=== PATIENT | female | born 1960 | race Caucasian/White ===

== ENCOUNTER 2019-03-28 11:17 | Outpatient (CLI) | payer OTHER, SELFPAY ==
--- NOTE | 2019-03-28 | US_ITS ---
WS: [id number] ULTRASOUND SOFT TISSUES RIGHT lower extremity HISTORY: SUBCUTANEOUS NODULE COMPARISON: None available. TECHNIQUE: 2-D and color Doppler imaging is submitted. Images submitted are labeled RIGHT lower leg. The exact location cannot be determined from the imagin g submitted. There is a vague area of increased echogenicity in the palpable site measuring 1.6 x 1.5 cm. Poorly defined with infiltrating margins. US/US soft tissue/extremity [id number] IMPRESSION: Palpable area corresponds to a vague hyperechoic poorly defined mass. May be a benign lipoma or healing soft tissue injury. No increased vascularity.
== END 2019-03-28 11:18 | disposition home or self-care (01) ==
LOC: RADOUTREAD 15:40
PROVIDERS: Family Provider Family Medicine; PCP Physician Assistant; Visit Provider Physician Assistant
DX: R22.9 Localized swelling, mass and lump, unspecified (principal)

== ENCOUNTER 2019-11-20 09:00 | Outpatient (CLI) | payer OTHER, SELFPAY ==
--- NOTE | 2019-11-20 09:07 | MM_ITS ---
WS: [id number] BILATERAL DIGITAL SCREENING MAMMOGRAPHY WITH CAD CLINICAL INFORMATION: SCREENING HISTORY: Screening mammogram. No current complaints. COMPARISON: None. TECHNIQUE: Bilateral CC and MLO views. FINDINGS: Scattered fibroglandular densities bilaterally. No suspicious focal mass, asymmetry, calcifications, or architectural distortion. No evidence of malignancy. MM/[place] [id number] IMPRESSION: BI-RADS: 1-Negative FOLLOW UP: 1 Year Follow-up Recommend return to annual screening mammography.
== END 2019-11-20 09:01 | disposition home or self-care (01) ==
LOC: RADSHAW 09:05
PROVIDERS: PCP Physician Assistant; Visit Provider Physician Assistant
DX: Z12.31 Encounter for screening mammogram for malignant neoplasm of breast (principal)
CPT/HCPCS: 77067

== ENCOUNTER 2020-05-25 12:54 | Emergency (ER) | payer OTHER, SELFPAY ==
[2020-05-25 13:02] VITALS: BP 166/94; PULSE 62; RESP 14; TEMP 37.1; O2SAT 98; BMI 45.9
--- NOTE | 2020-05-25 13:47 | W.ED.ABDPA2 ---
HPI - Abdominal Pain General: Chief Complaint: Abdominal Pain Stated Complaint: abd. pain left side, headaches Time Seen by Provider: 05/25/20 13:29 History of Present Illness: HPI narrative: Patient is a 59-year-old female comes to the ED with back pain and headache. Headache is described as a mild to moderate headache that starts at her neck and radiates up the back of her head. Back pain has been going on for over 3 months now. It is located on the left thoracic back region just below the scapula. Denies any pain with inspiration. Describes pain as achy and says that has episodes where the pain gets worse. Certain movements cause worsen the back pain. Denies any injury or accident to cause back pain. She says pain started back in January when she was diagnosed with COVID-19. Denies any chest pain, shortness of breath, dysuria, hematuria, abdominal pain, bowel symptoms. Associated Symptoms: Denies chills, constipation, diarrhea, dysuria, fever(s), hematochezia, hematuria, nausea and vomiting Review of Systems Const: Denies: fever(s), chills or fatigue Eyes: Denies: change in vision or eye discomfort ENMT: Denies: throat pain, odynophagia, nasal discharge or nasal congestion Card: Denies: chest pain, palpitations, edema, swelling of feet/ankles, dyspnea on exertion or orthopnea Resp: Denies: dyspnea, productive cough or non-productive cough GI: Denies: abdominal pain, nausea, vomiting, diarrhea, constipation or hematochezia : Denies: flank pain, dysuria or hematuria Musc: Reports: back pain; Denies: neck pain or extremity swelling Skin/Breast: Denies: rash or new lesions Neuro: Reports: headache(s); Denies: numbness in extremities or weakness in extremities Physical Exam Const: COMMON NORMALS: no acute distress, patient oriented x3 and alert GENERAL APPEARANCE: cooperative and comfortable HENMT: COMMON NORMALS: normocephalic HEAD & SCALP: normocephalic MOUTH: Normal oral and palatal mucosa present THROAT: posterior oropharynx normal and uvula midline Neck/C-Spine: COMMON NORMALS: supple GENERAL: Yes normal visual inspection Resp: COMMON NORMALS: normal respiratory effort, No retractions, No use of accessory muscles and clear to auscultation bilaterally AUSCULTATION: clear to auscultation bilaterally Cardio: COMMON NORMALS: regular rate, regular rhythm, S1 normal heart sound present, S2 normal heart sound present, No gallops present (Cardio), No clicks present (Cardio), No murmurs present (Cardio) and Peripheral pulses 2+ throughout RATE: regular rate RHYTHM: regular rhythm HEART SOUNDS: S1 normal heart sound present and S2 normal heart sound present PERIPHERAL PULSES: Peripheral pulses 2+ throughout GI: COMMON NORMALS: Normal to inspection, nondistended, normoactive bowel sounds present, Soft to palpation, non-tender and no masses PALPATION: Yes Soft to palpation : COMMON NORMALS: Yes no CVA tenderness BLADDER/KIDNEY EXAM: Yes no CVA tenderness Back/Pelvis: COMMON NORMALS: no CVA tenderness THORACIC SPINE/UPPER BACK: Yes pain with ROM (She has some back pain on the left side with movement.) and Yes other soft tissue findings Other thoracic soft tissue findings laterality: left Left other thoracic soft tissue findings details: tenderness (Soft tissue tenderness left thoracic back region just below the scapula.) Extremity: COMMON NORMALS: normal to inspection Neuro: COMMON NORMALS: patient oriented x3 SENSORIUM/ORIENTATION: Yes alert GAIT: Yes Normal gait present Skin: GENERAL SKIN EXAM: dry skin Course Vital Signs: Vital signs: Vital Signs Temperature 98.8 F 05/25/20 13:02 Pulse Rate 55 L 05/25/20 14:10 Respiratory Rate 14 05/25/20 14:10 Blood Pressure 194/94 05/25/20 14:10 Pulse Oximetry 97 05/25/20 14:10 MDM - Abdominal Pain MDM Narrative: Medical decision making narrative: Patient is a 59-year-old female comes to the ED with headache and back pain. Headache is described as a tension type headache. Exam findings suggestive of muscular back pain most of tissue tenderness on left thoracic back region. CBC, CMP and UA were all unremarkable. Patient was given Toradol and Norflex while here in the ED. She was diagnosed with musculoskeletal back pain and a headache. Discharged home and told to follow-up with PCP in 7 to 10 days for reevaluation. She was sent with a prescription for methocarbamol. Return to ED precautions given. Patient understood and agree with plan. Lab Data: Attestation: I reviewed the patient's lab results. Labs: Lab Results 05/25/20 05/25/20 05/25/20 Range/Units 13:56 14:40 14:40 WBC 10.6 H (4.0-10.0) 10^3/ uL RBC 5.00 (4.1-5.3) 10^6/u L Hgb 14.7 (11.5-15.3) g/dL Hct 46.1 (37.0-47.0) % MCV 92.2 (81-99) fL MCH 29.4 (28.0-34.0) pg MCHC 31.9 (30.0-36.0) g/dL RDW 12.7 (12.1-15.1) % Plt Count 348 (130-400) 10^3/c mm MPV 9.5 (7.4-10.4) fL Neut % (Auto) 66.0 % Lymph % (Auto) 24.4 % [place] % (Auto) 5.6 % Eos % (Auto) 2.6 % Baso % (Auto) 1.0 % Neut # (Auto) 6.97 (1.8-7.7) 10^3/u L Lymph # (Auto) 2.6 (0.8-4.8) 10^3/u L [place] # (Auto) 0.6 (0.2-0.9) 10^3/u L Eos # (Auto) 0.3 (0.0-0.8) 10^3/u L Baso # (Auto) 0.1 (0.0-0.1) 10^3/u L Nucleated RBC % (a uto) 0 % Nucleated RBCs # 0.0 /100WBC Sodium 139 (136-145) mmol/L Potassium 4.2 (3.5-5.1) mmol/L Chloride 105 (98-107) mmol/L Carbon Dioxide 24 (22-29) mmol/L Anion Gap 14.2 (5-19) BUN 10 (6-20) mg/dL Creatinine 0.8 (0.5-0.9) mg/dL GFR Calculation 73.9 L (90-130) mL/min Glucose 88 (65-115) mg/dL Calculated Osmolal ity 286 (285-295) mOsm/k g Calcium 8.9 (8.5-10.5) mg/dL Total Bilirubin 0.4 (0.15-1.2) mg/dL AST 17 (0-32) U/L ALT 25 (0-33) U/L Alkaline Phosphata se 140 H (35-105) IU/L Total Protein 7.7 (6.6-8.7) g/dL Albumin 4.3 (3.5-5.2) g/dL Globulin 3.4 (1.3-4.6) g/dL Lipase 12 L (13-60) U/L Urine Color Straw (Yellow) Urine Appearance Clear (CLEAR) Urine pH 6.5 (5-7) Ur Specific Gravit y 1.005 (1.005-1.030) Urine Protein Neg (Negative) Urine Glucose (UA) Norm (Normal) Urine Ketones Negative (Negative) Urine Blood Neg (Negative) Urine Nitrate Negative (Negative) Urine Bilirubin Neg (Negative) Urine Urobilinogen Norm (Negative) mg/dL Ur Leukocyte Lydia ase Negative (Negative) Urine RBC None (0-2) /hpf Urine WBC 0-4 H (0-5) /hpf Ur Squamous Epith Cells 0-4 H (0-5) /hpf Amorphous Sediment Not Reportable Urine Bacteria Trace (NONE) /hpf Discharge Plan Discharge Patient Disposition: Home Clinical Impression: Musculoskeletal back pain Headache Qualifiers: Headache type: tension-type Headache chronicity pattern: acute headache Intractability: not intractable Qualified Code(s): G44.209 - Tension-type headache, unspecified, not intractable Condition: Stable Prescriptions: New methocarbamol 750 mg tablet 750 mg PO Q8H Qty: 20 RF: 0 No Action gabapentin 600 mg tablet 600 mg PO BID@,20 RF: 0 venlafaxine 150 mg capsule,extended release 24hr 150 mg PO DAILY@20 RF: 0 diclofenac sodium 75 mg tablet,delayed release (DR/EC) 75 mg PO BID@07,20 RF: 0 Euthyrox 112 mcg tablet 112 mcg PO DAILY@06 RF: 0 zinc 50 mg Tablet 50 mg PO DAILY@07 RF: 0 Vitamin D3 25 mcg (1,000 unit) Capsule 50 mcg PO DAILY@07 RF: 0 Discharge Orders: Discharge ED (Routine); Ordered 05/25/20 Ordered By: Jerome Johnston Referrals: Shanon Borja PA [Primary Care Provider] - Discharge Diet: Regular Discharge Activity: Increase activity as tolerated Patient Instructions: Musculoskeletal Pain (ED), Back Pain (ED) Activity Restrictions/Additional Instructions: Follow-up with medical provider as directed in 7 to 10 days for reevaluation. Take medications as prescribed. Robaxin is a muscle relaxer and can cause some drowsiness so take at night before bed. Apply cold pack on sore area of back to help with symptoms. Continue taking your previously prescribed diclofenac to help with pain. Return to the ER or your medical provider if condition worsens. Please read and understand discharge instructions. If any questions, please ask. Coding Level of Care Code ED [employer] Faculty Member for Liset Fwd Exam Comprehensive
[2020-05-25 14:10] VITALS: BP 194/94; PULSE 55; RESP 14; O2SAT 97
[2020-05-25 14:14] LABS: Urine Appearance Clear (CLEAR); Urine Color Straw (Yellow); pH Urine 6.5 (5-7)
[2020-05-25 14:15] LABS: Add Urine Culture? No; Bacteria Urine TRACE /hpf; Bilirubin Urine Neg (Negative); Blood Urine Neg (Negative); Glucose Urine UA Norm (Normal); Ketones Urine Negative (Negative); Leukocyte Esterase Urine Negative (Negative); Nitrate Urine Negative (Negative); Protein Urine Neg (Negative); Specific Gravity, Urine 1.005 (1.005-1.030); Squamous Epithelial Cell Urine 0-4 /hpf (0-5); Urobilinogen Urine Norm (Negative); WBC Urine 0-4 /hpf (0-5)
[2020-05-25] MEDS: ketorolac 60 mg/2 mL INJ IM (14:17)
[2020-05-25] MEDS: orphenadrine 30 mg/mL Inj 2 mL 60 MG IM (14:20)
[2020-05-25 14:53] LABS: Basophils # 0.1 10^3/uL (0.0-0.1); Eosinophils # 0.3 10^3/uL (0.0-0.8); Eosinophils % 2.6 %; Hematocrit 46.1 % (37.0-47.0); Hemoglobin 14.7 g/dL (11.5-15.3); Lymphocytes # 2.6 10^3/uL (0.8-4.8); Lymphocytes % 24.4 %; Mean Corpuscular HGB Conc 31.9 g/dL (30.0-36.0); Mean Corpuscular Hemoglobin 29.4 pg (28.0-34.0); Mean Corpuscular Volume 92.2 fL (81-99); Mean Platelet Volume 9.5 fL (7.4-10.4); Monocytes # 0.6 10^3/uL (0.2-0.9); Monocytes % 5.6 %; Neutrophils # 6.97 10^3/uL (1.8-7.7); Nucleated Red Blood Cells % 0 %; Platelet Count 348 10^3/cmm (130-400); Red Cell Distribution Width 12.7 % (12.1-15.1); White Blood Count 10.6 10^3/uL (4.0-10.0)
[2020-05-25 15:16] LABS: Alanine Aminotransferase 25 U/L (0-33); Albumin Level 4.3 g/dL (3.5-5.2); Alkaline Phosphatase 140 IU/L (35-105); Anion Gap 14.2 (5-19); Aspartate Amino Transferase 17 U/L (0-32); Blood Urea Nitrogen 10 mg/dL (6-20); Calcium 8.9 mg/dL (8.5-10.5); Carbon Dioxide 24 mmol/L (22-29); Chloride 105 mmol/L (98-107); Globulin 3.4 g/dL (1.3-4.6); Glomerular Filtration Rate 73.9 mL/min (90-130); Glucose 88 mg/dL (65-115); Lipase 12 U/L (13-60); Osmolality Calculated 286 mOsm/kg (285-295); Potassium 4.2 mmol/L (3.5-5.1); Sodium 139 mmol/L (136-145); Total Bilirubin 0.4 mg/dL (0.15-1.2); Total Protein 7.7 g/dL (6.6-8.7)
--- NOTE | 2020-05-25 15:21 | PC.NURSE ---
Read and agree with assessment.
== END 2020-05-25 15:35 | disposition home or self-care (01) ==
PROVIDERS: Emergency Provider Physician Assistant; PCP Physician Assistant
DX: G44.209 Tension-type headache, unspecified, not intractable (principal); M54.9 Dorsalgia, unspecified
CPT/HCPCS: 36415; 80053; 81001; 83690; 85025; 96372; 99283; J1885; J2360

== ENCOUNTER 2020-06-22 12:51 | Outpatient (CLI) | payer OTHER, SELFPAY ==
--- NOTE | 2020-06-22 13:05 | MR_ITS ---
WS: [id number] MRI HEAD WITH CONTRAST TECHNIQUE: Sagittal T1, T2 axial, T2 axial FLAIR, axial susceptibility weighted imaging, axial diffus ion weighted images, and coronal T2 images were obtained. Pre and post-T1 axial and post T1 coronal i mages. ADC and FSPGR images. CLINICAL INFORMATION: TEMPORAL HEADACHE COMPARISON: MRI 1 FINDINGS: No evidence of restricted diffusion to suggest acute ischemia. Ventricular system and basal cisterns are patent. Periventricular T2 hyperintense lesion in the left pericallosal white matter measuring 10 mm. Small amount of T1 hyperintensity. No abnormal gadolinium enhancement. Additional small foci of T2 hyperintensity in the right frontoparietal white matter. A few tiny foci of T2 hyperintensity in t he periventricular white matter bilaterally. White matter lesions are new since 2015. Normal posterior fossa. Normal vascular flow voids at the skull base. No extra-axial fluid collection s. No evidence of mass or mass effect. Paranasal sinuses are well aerated. Mastoid air cells well aer ated. No hemosiderin on susceptibly weighted images. Normal optic chiasm and pituitary infundibulum. Normal dural venous sinuses. No abnormal intracranial enhancement. Benign venous angioma right cerebellum. MR/MR head wo/w con [id number] IMPRESSION: 1. No evidence of restricted diffusion to suggest acute ischemia. 2. Hazy T2 hyperintense lesion in the left pericallosal white matter measuring 10 mm. No abnormal enhancement. Small amount of T1 hyperintensity. Findings ar e nonspecific but can be seen with demyelinating disease and prior infectious o r inflammatory etiologies including cytotoxic lesions of the corpus callosum re ported with COVID 19 pneumonia. Recommend correlation with clinical history. 3. Mild periventricular white matter changes which is likely due to small vess el disease or migraine headaches. 4. Mild parenchymal volume loss. 5. No hemosiderin on susceptibly weighted images. 6. Normal optic chiasm and pituitary infundibulum. 7. No other significant findings.
[2020-06-22] MEDS: gadobenate dimeglumine 20 mL vial IV (14:26)
== END 2020-06-22 12:52 | disposition home or self-care (01) ==
LOC: RADSHAW 12:54
PROVIDERS: PCP Physician Assistant; Visit Provider Physician Assistant
DX: R51.9 Headache, unspecified (principal)
CPT/HCPCS: 70553; A9577

== ENCOUNTER 2021-06-13 19:34 | Emergency (ER) | payer MEDICARE, SELFPAY ==
[2021-06-13 19:50] VITALS: BP 145/88; PULSE 60; RESP 18; TEMP 36.8; O2SAT 98; BMI 46.2
[2021-06-13 22:16] LABS: Basophils % 0.4 %; Eosinophils # 0.2 10^3/uL (0.0-0.8); Eosinophils % 2.2 %; Hematocrit 48.3 % (37.0-47.0); Hemoglobin 15.8 g/dL (11.5-15.3); Lymphocytes # 2.6 10^3/uL (0.8-4.8); Lymphocytes % 26.6 %; Mean Corpuscular HGB Conc 32.7 g/dL (30.0-36.0); Mean Corpuscular Hemoglobin 30.5 pg (28.0-34.0); Mean Corpuscular Volume 93.2 fl (81-99); Mean Platelet Volume 9.6 fL (7.4-10.4); Monocytes # 0.7 10^3/uL (0.2-0.9); Monocytes % 6.7 %; Neutrophils # 6.31 10^3/uL (1.8-7.7); Neutrophils % 63.7 %; Nucleated Red Blood Cells % 0 %; Platelet Count 322 10^3/cmm (130-400); Red Blood Count 5.18 10^6/uL (4.1-5.3); Red Cell Distribution Width 13.2 % (12.1-15.1); White Blood Count 9.9 10^3/uL (4.0-10.0)
[2021-06-13 22:36] LABS: Alanine Aminotransferase 29 U/L (0-33); Albumin Level 4.1 g/dL (3.5-5.2); Alkaline Phosphatase 117 IU/L (35-105); Anion Gap 14.9 (5-19); Aspartate Amino Transferase 22 U/L (0-32); Blood Urea Nitrogen 12 mg/dL (6-20); Calcium 9.2 mg/dL (8.5-10.5); Carbon Dioxide 23 mmol/L (22-29); Chloride 107 mmol/L (98-107); Globulin 3.5 g/dL (1.3-4.6); Glomerular Filtration Rate 56.9 mL/min (90-130); Glucose 94 mg/dL (65-115); Lipase 10 U/L (13-60); Osmolality Calculated 292 mOsm/kg (285-295); Potassium 3.9 mmol/L (3.5-5.1); Sodium 141 mmol/L (136-145); Total Bilirubin 0.5 mg/dL (0.15-1.2); Total Protein 7.6 g/dL (6.6-8.7)
[2021-06-14 01:10] VITALS: BP 136/78; PULSE 59; RESP 18; TEMP 36.8; O2SAT 99
--- NOTE | 2021-06-14 01:35 | W.ED.ABDPA2 ---
Documented by User: DANAY Ro 06/14/21 01:57 HPI - Abdominal Pain General: Chief Complaint: Abdominal Pain Stated Complaint: abd burning, N/D Time Seen by Provider: 06/14/21 01:35 History of Present Illness: 60-year-old female comes in today for complaints of mid abdominal pain with a burning sensation. Patient reports a history of diverticulitis. Patient also reports increased pain with drinking or ingestion of fluids. Patient also reports diarrhea whenever she eats food. Patient states symptoms been going on for the last 3 days. Patient appears nontoxic. Patient appears in mild pain. Patient has had her gallbladder removed. MD elicited complaint: abdominal pain Associated Symptoms: Reports nausea; Denies fever(s) Review of Systems General: Reports: 10 or more systems reviewed and unremarkable except in HPI and below Const: Denies: fever(s) Card: Denies: chest pain Resp: Denies: dyspnea GI: Reports: abdominal pain and nausea : Reports: difficulty voiding Skin/Breast: Denies: rash Physical Exam Const: COMMON NORMALS: no acute distress HENMT: COMMON NORMALS: normocephalic HEAD & SCALP: normocephalic Neck/C-Spine: COMMON NORMALS: full ROM Resp: COMMON NORMALS: normal respiratory effort and clear to auscultation bilaterally AUSCULTATION: clear to auscultation bilaterally Cardio: COMMON NORMALS: regular rate and regular rhythm RATE: regular rate RHYTHM: regular rhythm GI: COMMON NORMALS: Soft to palpation PALPATION: Yes Soft to palpation, Yes Tenderness to palpation present (GI) Details: LUQ and No Guarding due to palpation present (GI) : COMMON NORMALS: Yes no CVA tenderness BLADDER/KIDNEY EXAM: Yes no CVA tenderness Back/Pelvis: COMMON NORMALS: no CVA tenderness Extremity: COMMON NORMALS: normal to inspection and no pedal edema Neuro: SPEECH: speech normal GAIT: Yes Normal gait present Skin: COMMON NORMALS: no rashes or lesions noted GENERAL SKIN EXAM: no rashes or lesions noted Course Vital Signs: Vital signs: Vital Signs Temperature 98.2 F 06/14/21 01:10 Pulse Rate 59 L 06/14/21 01:10 Respiratory Rate 18 06/14/21 01:10 Blood Pressure 136/78 06/14/21 01:10 Pulse Oximetry 99 06/14/21 01:10 MDM - Abdominal Pain Medical Decision Making 60-year-old female comes in today with complaints of abdominal pain. Patient reports pain feels like it is burning. Patient also reports nausea, poor oral intake, and diarrhea. On exam abdomen soft with tenderness in the left upper quadrant. Bowel sounds are present. Skin is warm and dry and turgor as well. Vital signs are normal. Differential diagnosis includes not limited to gastritis, diverticulitis, enteritis, urinary tract infection, dehydration Urinalysis was contaminated with large amount of white blood cells along with skin cells. Patient also had significant amount of calcium oxalate crystals. CBC was unremarkable except for some elevation in hemoglobin hematocrit. CMP had a creatinine 1.0. Lab Data : 06/13/21 22:10 06/13/21 22:10 Labs/Radiology: Radiology Impressions Abdomen/Pelvis CT 06/14/21 01:46 IMPRESSION: 1. There are few loops of mildly prominent small bowel , nonspecific but may be seen with gastroenteritis. 2. 3.7 cm fat density right adrenal nodule consistent with a lipid rich adenoma. 3. Diverticulosis without diverticulitis. Laboratory Results WBC 9.9 10^3/uL (4.0-10.0) 06/13/21 22:10 RBC 5.18 10^6/uL (4.1-5.3) 06/13/21 22:10 Hgb 15.8 g/dL (11.5-15.3) H 06/13/21 22:10 Hct 48.3 % (37.0-47.0) H 06/13/21 22:10 MCV 93.2 fl (81-99) 06/13/21 22:10 MCH 30.5 pg (28.0-34.0) 06/13/21 22:10 MCHC 32.7 g/dL (30.0-36.0) 06/13/21 22:10 RDW 13.2 % (12.1-15.1) 06/13/21 22:10 Plt Count 322 10^3/cmm (130-400) 06/13/21 22:10 MPV 9.6 fL (7.4-10.4) 06/13/21 22:10 Neut % (Auto) 63.7 % 06/13/21 22:10 Lymph % (Auto) 26.6 % 06/13/21 22:10 Dixie % (Auto) 6.7 % 06/13/21 22:10 Eos % (Auto) 2.2 % 06/13/21 22:10 Baso % (Auto) 0.4 % 06/13/21 22:10 Neut # (Auto) 6.31 10^3/uL (1.8-7.7) 06/13/21 22:10 Lymph # (Auto) 2.6 10^3/uL (0.8-4.8) 06/13/21 22:10 Dixie # (Auto) 0.7 10^3/uL (0.2-0.9) 06/13/21 22:10 Eos # (Auto) 0.2 10^3/uL (0.0-0.8) 06/13/21 22:10 Baso # (Auto) 0.0 10^3/uL (0.0-0.1) 06/13/21 22:10 Nucleated RBC % (auto) 0 % 06/13/21 22:10 Nucleated RBCs # 0.0 /100WBC 06/13/21 22:10 Sodium 141 mmol/L (136-145) 06/13/21 22:10 Potassium 3.9 mmol/L (3.5-5.1) 06/13/21 22:10 Chloride 107 mmol/L (98-107) 06/13/21 22:10 Carbon Dioxide 23 mmol/L (22-29) 06/13/21 22:10 Anion Gap 14.9 (5-19) 06/13/21 22:10 BUN 12 mg/dL (6-20) 06/13/21 22:10 Creatinine 1.0 mg/dL (0.5-0.9) H 06/13/21 22:10 GFR Calculation 56.9 mL/min (90-130) L 06/13/21 22:10 Glucose 94 mg/dL (65-115) 06/13/21 22:10 Calculated Osmolality 292 mOsm/kg (285-295) 06/13/21 22:10 Calcium 9.2 mg/dL (8.5-10.5) 06/13/21 22:10 Total Bilirubin 0.5 mg/dL (0.15-1.2) 06/13/21 22:10 AST 22 U/L (0-32) 06/13/21 22:10 ALT 29 U/L (0-33) 06/13/21 22:10 Alkaline Phosphatase 117 IU/L (35-105) H 06/13/21 22:10 Total Protein 7.6 g/dL (6.6-8.7) 06/13/21 22:10 Albumin 4.1 g/dL (3.5-5.2) 06/13/21 22:10 Globulin 3.5 g/dL (1.3-4.6) 06/13/21 22:10 Lipase 10 U/L (13-60) L 06/13/21 22:10 Urine Color Yellow (Yellow) 06/13/21 20:00 Urine Appearance Sl cloudy (CLEAR) A 06/13/21 20:00 Urine pH 5 (5-7) 06/13/21 20:00 Ur Specific Tullos 1.030 (1.005-1.030) 06/13/21 20:00 Urine Protein 1+ (Negative) H 06/13/21 20:00 Urine Glucose (UA) Norm (Normal) 06/13/21 20:00 Urine Ketones 1+ (Negative) H 06/13/21 20:00 Urine Blood Neg (Negative) 06/13/21 20:00 Urine Nitrate Negative (Negative) 06/13/21 20:00 Urine Bilirubin 1+ (Negative) H 06/13/21 20:00 Urine Urobilinogen 4 mg/dL (Negative) H 06/13/21 20:00 Ur Leukocyte Esterase 2+ (Negative) H 06/13/21 20:00 Urine RBC 0-4 /hpf (0-2) H 06/13/21 20:00 Urine WBC 25-40 /hpf (0-5) H 06/13/21 20:00 Ur Squamous Epith Cells 25-40 /hpf (0-5) H 06/13/21 20:00 Calcium Oxalate Crystal 15-25 /hpf H 06/13/21 20:00 Amorphous Sediment 4+ /hpf 06/13/21 20:00 Urine Bacteria 2+ /hpf (NONE) H 06/13/21 20:00 Discharge Plan Discharge Patient Disposition: Home Clinical Impression: Gastroenteritis Condition: Stable Prescriptions: New Zofran 4 mg tablet 4 mg PO Q6H PRN (Reason: nausea and vomiting) Qty: 10 0RF Prevacid 30 mg capsule,delayed release(DR/EC) 30 mg PO DAILY Qty: 30 0RF No Action gabapentin 600 mg tablet 600 mg PO BID@07,20 0RF venlafaxine 150 mg capsule,extended release 24hr 150 mg PO DAILY@20 0RF diclofenac sodium 75 mg tablet,delayed release (DR/EC) 75 mg PO BID@07,20 0RF Euthyrox 112 mcg tablet 112 mcg PO DAILY@06 0RF zinc 50 mg Tablet 50 mg PO DAILY@07 0RF Vitamin D3 25 mcg (1,000 unit) Capsule 50 mcg PO DAILY@07 0RF methocarbamol 750 mg tablet 750 mg PO Q8H Qty: 20 0RF Discharge Orders: Discharge ED (Routine); Ordered 06/14/21 Ordered By: Saeed Gamez Referrals: Shanon Borja PA [Primary Care Provider] - 1-3 days Discharge Diet: Advance as tolerated and Clear Liquid Discharge Activity: Increase activity as tolerated Patient Instructions: Gastroenteritis (ED) Activity Restrictions/Additional Instructions: Return for fever greater than 100, worsening pain despite treatment, vomiting liquids or medications despite treatment, any other concerning symptoms. See your doctor this coming week. Use medications as directed. Take the lansoprazole until told to discontinue by your doctor. Use the Zofran every 4 hours while awake for the next 24 hours, then as needed. Coding Level of Care Code ED Associate Professor Of Radiology for Chg Fwd Exam Comprehensive Documented by User: Saeed Gamez, 06/14/21 03:34 HPI - Abdominal Pain General: Chief Complaint: Abdominal Pain Stated Complaint: abd burning, N/D Time Seen by Provider: 06/14/21 01:35 Course Vital Signs: Vital signs: Vital Signs Temperature 98.2 F 06/14/21 01:10 Pulse Rate 59 L 06/14/21 01:10 Respiratory Rate 18 06/14/21 01:10 Blood Pressure 136/78 06/14/21 01:10 Pulse Oximetry 99 06/14/21 01:10 MDM - Abdominal Pain Medical Decision Making 60-year-old female comes in today with complaints of abdominal pain. Patient reports pain feels like it is burning. Patient also reports nausea, poor oral intake, and diarrhea. On exam abdomen soft with tenderness in the left upper quadrant. Bowel sounds are present. Skin is warm and dry and turgor as well. Vital signs are normal. Differential diagnosis includes not limited to gastritis, diverticulitis, enteritis, urinary tract infection, dehydration Urinalysis was contaminated with large amount of white blood cells along with skin cells. Patient also had significant amount of calcium oxalate crystals. CBC was unremarkable except for some elevation in hemoglobin hematocrit. CMP had a creatinine 1.0. This patient was originally seen by DANAY Pearson.? I agree with his history, evaluation, and treatment. CT reveals a few loops of mildly prominent small bowel, nonspecific but may be seen with gastroenteritis. No diverticulitis is noted. The white blood cell count is 9.9. She has received fluids, GI cocktail, Pepcid, pain and nausea medication. We will treat her symptoms. Liquid diet and advance from there. Lab Data : 06/13/21 22:10 06/13/21 22:10 Labs/Radiology: Radiology Impressions Abdomen/Pelvis CT 06/14/21 01:46 IMPRESSION: 1. There are few loops of mildly prominent small bowel , nonspecific but may be seen with gastroenteritis. 2. 3.7 cm fat density right adrenal nodule consistent with a lipid rich adenoma. 3. Diverticulosis without diverticulitis. Laboratory Results WBC 9.9 10^3/uL (4.0-10.0) 06/13/21 22:10 RBC 5.18 10^6/uL (4.1-5.3) 06/13/21 22:10 Hgb 15.8 g/dL (11.5-15.3) H 06/13/21 22:10 Hct 48.3 % (37.0-47.0) H 06/13/21 22:10 MCV 93.2 fl (81-99) 06/13/21 22:10 MCH 30.5 pg (28.0-34.0) 06/13/21 22:10 MCHC 32.7 g/dL (30.0-36.0) 06/13/21 22:10 RDW 13.2 % (12.1-15.1) 06/13/21 22:10 Plt Count 322 10^3/cmm (130-400) 06/13/21 22:10 MPV 9.6 fL (7.4-10.4) 06/13/21 22:10 Neut % (Auto) 63.7 % 06/13/21 22:10 Lymph % (Auto) 26.6 % 06/13/21 22:10 Dixie % (Auto) 6.7 % 06/13/21 22:10 Eos % (Auto) 2.2 % 06/13/21 22:10 Baso % (Auto) 0.4 % 06/13/21 22:10 Neut # (Auto) 6.31 10^3/uL (1.8-7.7) 06/13/21 22:10 Lymph # (Auto) 2.6 10^3/uL (0.8-4.8) 06/13/21 22:10 Dixie # (Auto) 0.7 10^3/uL (0.2-0.9) 06/13/21 22:10 Eos # (Auto) 0.2 10^3/uL (0.0-0.8) 06/13/21 22:10 Baso # (Auto) 0.0 10^3/uL (0.0-0.1) 06/13/21 22:10 Nucleated RBC % (auto) 0 % 06/13/21 22:10 Nucleated RBCs # 0.0 /100WBC 06/13/21 22:10 Sodium 141 mmol/L (136-145) 06/13/21 22:10 Potassium 3.9 mmol/L (3.5-5.1) 06/13/21 22:10 Chloride 107 mmol/L (98-107) 06/13/21 22:10 Carbon Dioxide 23 mmol/L (22-29) 06/13/21 22:10 Anion Gap 14.9 (5-19) 06/13/21 22:10 BUN 12 mg/dL (6-20) 06/13/21 22:10 Creatinine 1.0 mg/dL (0.5-0.9) H 06/13/21 22:10 GFR Calculation 56.9 mL/min (90-130) L 06/13/21 22:10 Glucose 94 mg/dL (65-115) 06/13/21 22:10 Calculated Osmolality 292 mOsm/kg (285-295) 06/13/21 22:10 Calcium 9.2 mg/dL (8.5-10.5) 06/13/21 22:10 Total Bilirubin 0.5 mg/dL (0.15-1.2) 06/13/21 22:10 AST 22 U/L (0-32) 06/13/21 22:10 ALT 29 U/L (0-33) 06/13/21 22:10 Alkaline Phosphatase 117 IU/L (35-105) H 06/13/21 22:10 Total Protein 7.6 g/dL (6.6-8.7) 06/13/21 22:10 Albumin 4.1 g/dL (3.5-5.2) 06/13/21 22:10 Globulin 3.5 g/dL (1.3-4.6) 06/13/21 22:10 Lipase 10 U/L (13-60) L 06/13/21 22:10 Urine Color Yellow (Yellow) 06/13/21 20:00 Urine Appearance Sl cloudy (CLEAR) A 06/13/21 20:00 Urine pH 5 (5-7) 06/13/21 20:00 Ur Specific Tullos 1.030 (1.005-1.030) 06/13/21 20:00 Urine Protein 1+ (Negative) H 06/13/21 20:00 Urine Glucose (UA) Norm (Normal) 06/13/21 20:00 Urine Ketones 1+ (Negative) H 06/13/21 20:00 Urine Blood Neg (Negative) 06/13/21 20:00 Urine Nitrate Negative (Negative) 06/13/21 20:00 Urine Bilirubin 1+ (Negative) H 06/13/21 20:00 Urine Urobilinogen 4 mg/dL (Negative) H 06/13/21 20:00 Ur Leukocyte Esterase 2+ (Negative) H 06/13/21 20:00 Urine RBC 0-4 /hpf (0-2) H 06/13/21 20:00 Urine WBC 25-40 /hpf (0-5) H 06/13/21 20:00 Ur Squamous Epith Cells 25-40 /hpf (0-5) H 06/13/21 20:00 Calcium Oxalate Crystal 15-25 /hpf H 06/13/21 20:00 Amorphous Sediment 4+ /hpf 03/27/22 20:00 Urine Bacteria 2+ /hpf (NONE) H 06/13/21 20:00 Discharge Plan Discharge Patient Disposition: Home Clinical Impression: Gastroenteritis Condition: Stable Prescriptions: New Zofran 4 mg tablet 4 mg PO Q6H PRN (Reason: nausea and vomiting) Qty: 10 0RF Prevacid 30 mg capsule,delayed release(DR/EC) 30 mg PO DAILY Qty: 30 0RF No Action gabapentin 600 mg tablet 600 mg PO BID@07,20 0RF venlafaxine 150 mg capsule,extended release 24hr 150 mg PO DAILY@20 0RF diclofenac sodium 75 mg tablet,delayed release (DR/EC) 75 mg PO BID@07,20 0RF Euthyrox 112 mcg tablet 112 mcg PO DAILY@06 0RF zinc 50 mg Tablet 50 mg PO DAILY@07 0RF Vitamin D3 25 mcg (1,000 unit) Capsule 50 mcg PO DAILY@07 0RF methocarbamol 750 mg tablet 750 mg PO Q8H Qty: 20 0RF Discharge Orders: Discharge ED (Routine); Ordered 06/14/21 Ordered By: Saeed Gamez Referrals: Shanon Borja PA [Primary Care Provider] - 1-3 days Discharge Diet: Advance as tolerated and Clear Liquid Discharge Activity: Increase activity as tolerated Patient Instructions: Gastroenteritis (ED) Activity Restrictions/Additional Instructions: Return for fever greater than 100, worsening pain despite treatment, vomiting liquids or medications despite treatment, any other concerning symptoms. See your doctor this coming week. Use medications as directed. Take the lansoprazole until told to discontinue by your doctor. Use the Zofran every 4 hours while awake for the next 24 hours, then as needed. Coding Level of Care Code ED Associate Professor Of Radiology for Liset Fwd Exam Comprehensive
[2021-06-14 01:39] LABS: Add Urine Microscopic? YES; Bilirubin Urine 1+ (Negative); Blood Urine Neg (Negative); Glucose Urine UA Norm (Normal); Ketones Urine 1+ (Negative); Leukocyte Esterase Urine 2+ (Negative); Nitrate Urine Negative (Negative); Protein Urine 1+ (Negative); Urine Color Yellow (Yellow); Urobilinogen Urine 4 mg/dL (Negative); pH Urine 5 (5-7)
[2021-06-14 01:41] LABS: Add Urine Culture? No; Amorphous Sediment Urine 4+ /hpf; Bacteria Urine 2+ /hpf; Calcium Oxalate Crystals Urine 15-25 /hpf; RBC Urine 0-4 /hpf (0-2); Squamous Epithelial Cell Urine 25-40 /hpf (0-5); WBC Urine 25-40 /hpf (0-5)
--- NOTE | 2021-06-14 01:46 | CTR_ITS ---
PROCEDURE INFORMATION: Exam: CT Abdomen And Pelvis With Contrast Exam date and time: 06/14/2021 2:26 AM Age: 60 years old Clinical indication: Abdominal pain; Generalized; Prior surgery; Surgery date: 6+ months; Surgery type: Gb; Additional info: Abd pain TECHNIQUE: Imaging protocol: Computed tomography of the abdomen and pelvis with contrast. Radiation optimization: All CT scans at this facility use at least one of these dose optimization techniques: automated exposure control; mA and/or kV adjustment per patient size (includes targeted exams where dose is matched to clinical indication); or iterative reconstruction. Contrast material: OMNI 300; Contrast volume: 95 ml; Contrast route: INTRAVENOUS (IV); COMPARISON: CT pelvis wo con [id number] 02/16/2018 7:27 PM RADIATION DOSE METRICS: Total DLP (mGy-cm): 1769.03 FINDINGS: Lungs: The lung bases are clear. No effusion Liver: Normal. No mass. Gallbladder and bile ducts: There has been a cholecystectomy. Pancreas: Pancreas is mostly fatty replaced. Spleen: Normal. No splenomegaly. Adrenal glands: 3.7 cm fat density right adrenal nodule consistent with a lipid rich adenoma. Kidneys and ureters: Normal. No hydronephrosis. Stomach and bowel: Diverticulosis without diverticulitis. There are few loops of mildly prominent small bowel , nonspecific but may be seen with gastroenteritis. Appendix: No evidence of appendicitis. Intraperitoneal space: Unremarkable. No free air. No significant fluid collection. Vasculature: Unremarkable. No abdominal aortic aneurysm. Lymph nodes: Unremarkable. No enlarged lymph nodes. Urinary bladder: Unremarkable as visualized. Reproductive: Unremarkable as visualized. Bones/joints: Bilateral hip prostheses resulting in streak artifact which limits evaluation of the pelvis. Soft tissues: Unremarkable. CT/CT abdomen pelvis w con* [id number] IMPRESSION: 1. There are few loops of mildly prominent small bowel , nonspecific but may be seen with gastroenteritis. 2. 3.7 cm fat density right adrenal nodule consistent with a lipid rich adenoma. 3. Diverticulosis without diverticulitis.
[2021-06-14] MEDS: iohexol 300 mg/mL 100 mL Btl IV (02:25)
[2021-06-14] MEDS: sodium chloride 0.9% 1,000 ML 999 ML IV (02:33)
[2021-06-14] MEDS: famotidine 20 mg/2 mL INJ 40 MG IVP (02:39)
[2021-06-14] MEDS: lidocaine 2% viscous 15 ML, aluminum-mag hydrox-simethicon 30 ML, sucralfate oral liq 1 GM PO (03:44)
[2021-06-14 03:52] VITALS: BP 136/78; PULSE 76; RESP 18; O2SAT 98
== END 2021-06-14 05:04 | disposition home or self-care (01) ==
PROVIDERS: Emergency Medicine; Emergency Provider Emergency Medicine; PCP Physician Assistant
DX: K52.9 Noninfective gastroenteritis and colitis, unspecified (principal)
CPT/HCPCS: 74177; 80053; 81001; 83690; 85025; 96361; 96374; 99284; J3490; J7030; Q9967

== ENCOUNTER 2021-08-05 09:08 | Outpatient (CLI) | payer MEDICARE, SELFPAY ==
--- NOTE | 2021-08-05 09:38 | MM_ITS ---
WS: [id number] BILATERAL SCREENING DIGITAL BREAST TOMOSYNTHESIS MAMMOGRAM WITH CAD HISTORY: SCREENING COMPARISON: 11/20/2019, Bilateral CC and MLO views with tomosynthesis and synthetic mammography submitted. Computer aided det ection analyzed. Breast composition: There are scattered areas of fibroglandular density. No suspicious masses, microc alcifications or architectural distortion. Benign intramammary lymph nodes upper outer quadrants. No suspicious masses or calcification. MM/[place] [id number] IMPRESSION: BI-RADS: 2-Benign FOLLOW UP: 1 Year Follow-up
== END 2021-08-05 09:09 | disposition home or self-care (01) ==
PROVIDERS: PCP Physician Assistant; Visit Provider Physician Assistant
DX: Z12.31 Encounter for screening mammogram for malignant neoplasm of breast (principal)
CPT/HCPCS: 77063; 77067

== ENCOUNTER 2021-08-10 20:00 | Outpatient (CLI) | payer MEDICARE, SELFPAY | END 2021-08-10 20:01 | disposition home or self-care (01) | LOC: SLEEP 08-11 07:49 | PROVIDERS: PCP Physician Assistant; Visit Provider Physician Assistant | DX: G47.33 Obstructive sleep apnea (adult) (pediatric) (principal) | CPT/HCPCS: 95811 ==

== ENCOUNTER → 2022-03-27 13:35 | Outpatient (BNVA) | payer MEDICARE, SELFPAY | PROVIDERS: PCP Physician Assistant; Visit Provider Emergency Medicine | DX: N30.01 Acute cystitis with hematuria (principal); R10.9 Unspecified abdominal pain | CPT/HCPCS: 81000 ==

== ENCOUNTER 2023-06-22 12:05 | Outpatient (CLI) | payer MEDICARE, SELFPAY ==
--- NOTE | 2023-06-22 12:00 | MM_ITS ---
WS: [id number] SCREENING DIGITAL BREAST TOMOSYNTHESIS MAMMOGRAM WITH CAD HISTORY: SCREENING COMPARISON: None available. Bilateral CC and MLO with tomosynthesis and synthetic mammography submitted. Computer aided detection analyzed. Breast composition: There are scattered areas of fibroglandular density. Well-circumscribed 8 mm mass at 12:00 in the mid LEFT breast. May have been present on the prior study but obscured by fibrogland ular tissue. Recommend additional evaluation. The remaining masses within each breast are stable and may be lymph nodes. No suspicious group of calcifications. IMPRESSION: MM/[place] [id number] BI-RADS: 0-Incomplete: Need additional imaging evaluation FOLLOW UP: Need Additional Imaging Recommendation: LEFT breast ultrasound, limited, 12:00.
== END 2023-06-22 12:06 | disposition home or self-care (01) ==
LOC: MOBLMAM 13:03
PROVIDERS: PCP Physician Assistant; Visit Provider Physician Assistant
DX: Z12.31 Encounter for screening mammogram for malignant neoplasm of breast (principal); R92.322 Mammographic fibroglandular density, left breast; N63.25 Unspecified lump in the left breast, overlapping quadrants
CPT/HCPCS: 77063; 77067

== ENCOUNTER 2023-07-25 10:04 | Outpatient (CLI) | payer MEDICARE, SELFPAY ==
--- NOTE | 2023-07-25 10:11 | US_ITS ---
WS: [id number] ULTRASOUND LEFT BREAST HISTORY: L BREAST MASS COMPARISON: Mammogram 06/22/2023 TECHNIQUE: 2-D and Doppler. There is a cyst at 12:00 measuring 7 x 6 x 10 mm. This corresponds to the mammographic abnormality. N o solid mass. US/US breast LT limited* [id number] IMPRESSION: BI-RADS: 2-Benign FOLLOW-UP: 1 Year Follow-up Return to annual screening mammography. Simple cyst LEFT breast.
== END 2023-07-25 10:05 | disposition home or self-care (01) ==
LOC: RAD 10:04
PROVIDERS: PCP Physician Assistant; Visit Provider Physician Assistant
DX: N63.20 Unspecified lump in the left breast, unspecified quadrant (principal); N60.02 Solitary cyst of left breast
CPT/HCPCS: 76642